=== PATIENT | female | born 1980 | race Caucasian/White ===

== ENCOUNTER 2017-08-20 16:34 | Emergency (ER) | payer SELFPAY ==
[~2017-08-20] VITALS: Ht 165.1 cm; Wt 167.0 kg
[2017-08-20 16:37] VITALS: BP 168/107
[2017-08-20] MEDS ORDERED: HYDROcodone/APAP 5/325 TABLET ONE (17:21)
[2017-08-20] MEDS ORDERED: HYDROcodone/APAP 5/325 TABLET PO ONE (17:30)
[2017-08-20] MEDS ORDERED: LIDOCAINE 1%, 10ML INFIL ONE (17:30)
== END 2017-08-20 17:52 | disposition home or self-care (01) ==
LOC: ED 17:46
DX: K02.9 Dental caries, unspecified (principal); K08.89 Other specified disorders of teeth and supporting structures; I10 Essential (primary) hypertension
CPT/HCPCS: 64400; 99284